=== PATIENT | male | born 1990 | race Caucasian/White ===

== ENCOUNTER 2019-09-30 09:47 | Emergency (ER) | payer OTHER, SELFPAY ==
[2019-09-30 10:03] VITALS: BP 135/84; PULSE 91; RESP 15; TEMP 36.4; O2SAT 100; BMI 25.8
--- NOTE | 2019-09-30 10:39 | ED.SKABFB ---
HPI - Skin/Abscess/Foreign Bdy General Chief complaint: Skin/Abscess/Foreign Body Stated complaint: RASH 2X Time Seen by Provider: 09/30/19 10:00 Source: patient Mode of arrival: Ambulatory Limitations: no limitations History of Present Illness HPI narrative: Patient comes emergency department complaining of a full body rash for the last couple of days. He states he has been noticing ?bumps? all over his body including his palms. He states that he also has a laceration at that was glued 2 weeks ago and it looks worse since the rash started. Patient denies any drainage. No red streaking. Patient has not had any new exposures to anything to which he could be allergic. He denies any exposure to anybody else with the same kind of rash. Patient states that he has not felt ill except for a few days ago he had ?flu-like? symptoms. No new medications. Patient states this has never happened to him before. No difficulty breathing or facial swelling. No nausea or vomiting. No pain. Patient states the rash is itchy. Related Data Previous Rx's Medication Instructions Recorded prednisone 60 mg PO DAILY #9 tab 09/30/19 Allergies Allergy/AdvReac Type Severity Reaction Status Date / Time No Known Drug Allergies Allergy Verified 09/30/19 10:03 Review of Systems Constitutional Constitutional: Denies chills, Denies fatigue, Denies fever(s), Denies frequent falls, Denies lethargy and Denies weakness Eyes Eyes: Denies change in vision, Denies eye discharge, Denies irritation and Denies loss of vision ENT Ears, Nose, Mouth, and Throat: Denies change in voice, Denies dizziness, Denies neck pain, Denies sore throat and Denies throat swelling Cardiovascular Cardiovascular: Denies chest pain, Denies irregular heart rhythm, Denies lightheadedness, Denies palpitations, Denies dyspnea, Denies dyspnea on exertion and Denies orthopnea Respiratory Respiratory: Denies cough, Denies dyspnea, Denies dyspnea on exertion and Denies wheezing Gastrointestinal Gastrointestinal: Denies abdominal pain, Denies change in bowel habits, Denies diarrhea, Denies nausea and Denies vomiting Genitourinary Genitourinary: Denies hematuria, Denies flank pain, Denies urinary incontinence and Denies urinary urgency Musculoskeletal Musculoskeletal: Denies back pain, Denies muscle weakness, Denies neck pain, Denies numbness and Denies tingling Integumentary/Breasts Skin/Breast: Denies pruritus, Denies erythema, Denies rash and Denies wounds Neurologic Neurologic: Denies behavioral changes, Denies confusion, Denies dizziness, Denies frequent falls, Denies loss of vision, Denies numbness, Denies tingling and Denies weakness Psychiatric Psychiatric: Denies anxiety, Denies behavioral changes, Denies confusion, Denies depression, Denies homicidal ideation and Denies suicidal ideation Endocrine Endocrine: Denies fatigue, Denies flushing and Denies palpitations Hematologic/Lymphatic Hematologic/Lymphatic: Denies easy bruising Allergic/Immunologic Allergic/Immunologic: Denies urticaria, Denies throat swelling and Denies wheezing Patient History Medical History Healthy adult (Acute) alcohol intake frequency: 3 or more drinks per day Substance Use Type: does not use Exam Initial Vital Signs Initial Vital Signs: Vital Signs Temperature 97.6 F 09/30/19 10:03 Pulse Rate 91 H 09/30/19 10:03 Respiratory Rate 15 09/30/19 10:03 Blood Pressure 135/84 09/30/19 10:03 Pulse Oximetry 100 09/30/19 10:03 Const General: cooperative and well developed Nutritional Appearance: well nourished Orientation: alert, awake, oriented x3 and not confused [facility] Head: normocephalic and atraumatic Ears: external ears normal Nose: external nose normal and No nasal discharge Face and sinus: face symmetric and No dry mucous membranes Mouth: oral mucosae normal and moist mucous membranes Teeth and gingiva: dentition normal Eyes General: appearance normal, both eyes and all related structures Eyelids: eyelids normal Conjunctivae: conjunctivae normal Sclera: sclerae normal Pupils: PERRL EOM: EOM intact bilaterally Resp Effort & Inspection: normal respiratory effort, able to speak in complete sentences, no respiratory distress and no use of accessory muscles Skin General: No jaundice and No petechiae Other: Patient has a scattered papular rash with minimal erythema of the papules over his arms, legs, and palms. No facial rash. No excoriations or tracking. Patient has a healing laceration of his left wrist that does not appear cellulitic. No wound dehiscence or draining. Neuro General: alert, oriented x3, gait normal and no focal motor deficits Speech: speech normal Extrem General: normal to inspection and full ROM Course Course Course Narrative: I discussed with the patient that his rash is nonspecific, but benign in appearance, especially considering the lack of other concerning symptoms or historical factors. I am not certain what has caused a rash, as the patient does not seem to have any exposures and had only minimal symptoms of illness a few days ago. We have discussed that there may be something environmental or in his food that he has not thought of that may have caused the outbreak at this point in time, I suspect the rash will resolve on its own without further complications. He has been taking Benadryl, and I will put him on a short course of prednisone. I have advised the patient to follow up in dermatology clinic, should the rash fail to resolve in the next week. Orders Ordered: Discontinued Medications Prednisone (Deltasone) 60 mg PO NOW ONE Stop: 09/30/19 10:40 Vital Signs Vital signs: Vital Signs - 8 hr 09/30/19 10:03 Temperature 97.6 F Pulse Rate 91 H Respiratory Rate 15 Blood Pressure 135/84 Pulse Oximetry 100 MDM - Skin/Abscess/Foreign Bdy Medical Records Attestation: I reviewed the patient's medical records. Discharge Plan Departure Patient Disposition: Home Clinical Impression: Diffuse papular rash Discharge Date/Time: 09/30/19 11:04 Instructions: DI for Rash Prescriptions: New prednisone 20 mg tablet 60 mg PO DAILY Qty: 9 RF: 0 Referrals: [facility] [Provider Group]
== END 2019-09-30 11:04 | disposition home or self-care (01) ==
PROVIDERS: Emergency Provider Emergency Medicine
DX: R21 Rash and other nonspecific skin eruption (principal)
CPT/HCPCS: 99282; 99283